=== PATIENT | female | born 1955 | race Caucasian/White ===

== ENCOUNTER 2022-05-26 01:18 | Emergency (ER) | payer BC, OTHER ==
[~2022-05-26] VITALS: Ht 154.9 cm; Wt 79.4 kg
[2022-05-26] MEDS ORDERED: TDAP DIPH,PERTUSS,TET VAC/PF 0.5 ML DISP.SYRIN IM ONE ×2 (02:00→02:04)
[2022-05-26] MEDS ORDERED: LIDOCAINE HCL 2% 20 ML VIAL TP ONE (02:00)
--- NOTE | 2022-05-26 02:00 | NUR ---
Patient informed of plan of care, no s/s of any distress noted, MD at bedside for wound care.
[2022-05-26] MEDS ORDERED: LIDOCAINE HCL 2% 20 ML VIAL ONE (02:03)
[2022-05-26 02:24] VITALS: BP 115/74
--- NOTE | 2022-05-26 02:25 | NUR ---
ACI GIVEN STATES UNDERSTANDING, REMAINS STABLE FOR DISCHARGE HOME.
== END 2022-05-26 02:25 | disposition home or self-care (01) ==
LOC: ER 01:18
DX: S61.215A Laceration without foreign body of left ring finger without damage to nail, initial encounter (principal); W26.0XXA Contact with knife, initial encounter; Y93.89 Activity, other specified; Y92.89 Other specified places as the place of occurrence of the external cause; Y99.8 Other external cause status
CPT/HCPCS: 99283; 90715; 90471; 12001; J3490; A4663